=== PATIENT | female | born 1940 | race Caucasian/White ===

== ENCOUNTER → 2023-07-20 12:08 | Outpatient (REF) | payer OTHER, SELFPAY ==
[2023-07-20 16:10] LABS: ALT (SGPT) 46 U/L (0-35); AST (SGOT) 53 U/L (14-36); Albumin 4.2 g/dl (3.5-5.0); Alkaline Phosphatase 132 U/L (38-126); Blood Urea Nitrogen 12 mg/dl (7-17); Calcium 9.8 mg/dl (8.4-10.2); Carbon Dioxide 29 mmol/L (22-30); Chloride 103 mmol/L (98-107); Glucose 159 mg/dl (70-99); Potassium 4.3 mmol/L (3.5-5.1); Sodium 137 mmol/L (135-145); Total Bilirubin 0.5 mg/dl (0.2-1.3); Total Protein 7.5 g/dl (6.3-8.2); eGFR > 60.00
[2023-07-20 16:27] LABS: Vitamin D, 25-OH*** 53.7 ng/mL (30-80)
== END ==
LOC: HWLAB 12:08
PROVIDERS: ATTENDING PHYSICIAN Internal Medicine; FAMILY PHYSICIAN Family Medicine
DX: M81.0 Age-related osteoporosis without current pathological fracture (principal)
CPT/HCPCS: 36415; 80053; 82306

== ENCOUNTER → 2023-10-27 16:07 | Outpatient (REF) | payer OTHER, SELFPAY ==
[2023-10-27 17:20] LABS: ALT (SGPT) 30 U/L (0-35); AST (SGOT) 45 U/L (14-36); Albumin 4.3 g/dl (3.5-5.0); Alkaline Phosphatase 103 U/L (38-126); Blood Urea Nitrogen 14 mg/dl (7-17); Carbon Dioxide 28 mmol/L (22-30); Chloride 104 mmol/L (98-107); Glucose 91 mg/dl (70-99); Potassium 4.6 mmol/L (3.5-5.1); Sodium 138 mmol/L (135-145); Total Bilirubin 0.7 mg/dl (0.2-1.3); Total Protein 7.4 g/dl (6.3-8.2); eGFR > 60.00
[2023-10-27 17:41] LABS: Vitamin D, 25-OH*** 50.1 ng/mL (30-80)
[2023-10-29 16:01] LABS: Rheumatoid Agglutinin Less Than 10 IU (<10 IU)
[2023-10-30 00:11] LABS: CCP Antibody IgG/IgA 4 Units (0-19)
== END ==
LOC: REG 16:07
PROVIDERS: ATTENDING PHYSICIAN Internal Medicine; FAMILY PHYSICIAN Family Medicine
DX: M25.60 Stiffness of unspecified joint, not elsewhere classified (principal); M35.3 Polymyalgia rheumatica; M81.0 Age-related osteoporosis without current pathological fracture
CPT/HCPCS: 36415; 80053; 82306; 86200; 86430

== ENCOUNTER → 2023-11-09 14:32 | Outpatient (REF) | payer OTHER, SELFPAY | LOC: HWRAD 14:32 | PROVIDERS: ATTENDING PHYSICIAN Internal Medicine; FAMILY PHYSICIAN Family Medicine | DX: M81.0 Age-related osteoporosis without current pathological fracture (principal) | CPT/HCPCS: 77080 ==

== ENCOUNTER → 2025-01-30 14:03 | Outpatient (REF) | payer OTHER, SELFPAY ==
[2025-02-01 14:21] LABS: tTG IgA Antibody 62.4 EU/ml (0-19); tTG IgG Antibody 32.4 EU/ml (0-19)
== END ==
LOC: REG 14:03
PROVIDERS: ATTENDING PHYSICIAN Internal Medicine Gastroenterology; FAMILY PHYSICIAN Family Medicine
DX: K92.89 Other specified diseases of the digestive system (principal)
CPT/HCPCS: 36415; 82784; 83516; 86231

== ENCOUNTER → 2025-02-01 15:23 | Outpatient (REF) | payer OTHER, SELFPAY ==
[2025-02-03 22:58] LABS: Calprotectin, Fecal 526 ug/g (<=49)
== END ==
LOC: REG 15:23
PROVIDERS: ATTENDING PHYSICIAN Internal Medicine Gastroenterology
DX: K92.89 Other specified diseases of the digestive system (principal)
CPT/HCPCS: 83993

== ENCOUNTER → 2025-03-08 10:22 | Outpatient (REF) | payer OTHER, SELFPAY ==
[2025-03-08 12:10] LABS: Vitamin D, 25-OH*** 41.6 ng/mL (30-80)
[2025-03-08 12:11] LABS: ALT (SGPT) 32 U/L (0-35); AST (SGOT) 41 U/L (14-36); Albumin 4.4 g/dl (3.5-5.0); Alkaline Phosphatase 74 U/L (38-126); Blood Urea Nitrogen 12 mg/dl (7-17); Calcium 10.1 mg/dl (8.4-10.2); Carbon Dioxide 29 mmol/L (22-30); Chloride 103 mmol/L (98-107); Glucose 113 mg/dl (70-99); Potassium 4.7 mmol/L (3.5-5.1); Sodium 139 mmol/L (135-145); Total Protein 8.2 g/dl (6.3-8.2); eGFR > 60.00
== END ==
LOC: REG 10:22
PROVIDERS: ATTENDING PHYSICIAN Physician Assistant; FAMILY PHYSICIAN Family Medicine
DX: R48.2 Apraxia (principal); I87.2 Venous insufficiency (chronic) (peripheral); G52.9 Cranial nerve disorder, unspecified; E55.9 Vitamin D deficiency, unspecified; M81.0 Age-related osteoporosis without current pathological fracture
CPT/HCPCS: 36415; 80053; 82306

== ENCOUNTER → 2025-03-16 08:46 | Outpatient (REF) | payer OTHER, SELFPAY | LOC: RAD 08:46 | PROVIDERS: ATTENDING PHYSICIAN Internal Medicine Gastroenterology; FAMILY PHYSICIAN Family Medicine | DX: R14.0 Abdominal distension (gaseous) (principal) | CPT/HCPCS: 74177; Q9967 ==